=== PATIENT | male | born 1975 | race Caucasian/White ===

== ENCOUNTER 2018-01-16 11:48 | Emergency (ER) | payer SELFPAY ==
[~2018-01-16 11:48] MED LIST: Z.0.NO CURRENT MEDS
[2018-01-16 12:03] VITALS: BP 202/102; PULSE 83; RESP 20; TEMP 98; O2SAT 96
[2018-01-16] MEDS ORDERED: LISI-519 PO (12:10)
--- NOTE | 2018-01-16 12:33 | PD ---
HPI Chief Complaint: Cold / Flu Symptoms Time Seen by Provider: 12:27 Travel History International Travel<30 days: No Contact w/Intl Traveler<30days: No Traveled to known affect area: No History of Present Illness HPI Patient 42-year-old male presents emergency department for evaluation of URI symptoms. Patient states it was not severe but he was late to work today and his boss made him come to the emergency department for return to work note. He states his been sick for the past 2-3 days, he is currently trying to speak with smoking as well. His diagnosed with COPD and they are trying to quit together as they know that there is many adverse health outcomes associated with smoking. Symptoms are mild, not associate with any fever, started 2 days ago, gradually worsening. PFSH Past Medical History Hypertension: Yes Social History Alcohol Use: No Tobacco Use: Yes (ppd) Substance Use: No Allergies-Medications (Allergen,Severity, Reaction): Coded Allergies: No Known Allergies (Verified Adverse Reaction, Unknown, 01/16/18) Reported Meds & Prescriptions Reported Meds & Active Scripts Active Reported Lisinopril Unknown Strength Tab Unknown Dose PO DAILY Review of Systems Except as stated in HPI: all other systems reviewed are Neg Physical Exam Narrative GENERAL: Well-nourished, well-developed patient. SKIN: Focused skin assessment warm/dry. HEAD: Normocephalic. EYES: No scleral icterus. No injection or drainage. ENT: TMs clear bilaterally, oropharynx clear moist. NECK: Supple, trachea midline. No JVD or lymphadenopathy. CARDIOVASCULAR: Regular rate and rhythm without murmurs, gallops, or rubs. RESPIRATORY: Breath sounds equal bilaterally. No accessory muscle use. No wheezes rales or rhonchi. Breath sounds clear GASTROINTESTINAL: Abdomen soft, non-tender, nondistended. MUSCULOSKELETAL: No cyanosis, or edema. BACK: Nontender without obvious deformity. No CVA tenderness. Data Data Last Documented VS Vital Signs Date Time Temp Pulse Resp B/P (MAP) Pulse Ox O2 Delivery O2 Flow Rate FiO2 01/16/18 12:03 98.0 83 20 202/102 (135) 96 Orders Orders Ed Discharge Order (01/16/18 12:39) MDM Medical Decision Making Medical Screen Exam Complete: Yes Emergency Medical Condition: Yes Differential Diagnosis URI, pneumonia unlikely, influenza unlikely. Narrative Course Patient room to the emergency department, appears well in obvious distress, I see no reason why he could not return to work, filled out the work request. Discussed with him briefly his blood pressure. He is stable for discharge There is no indication for emergent lowering of his blood pressure, no indication further workup is not having any symptoms of endorgan failure Diagnosis Primary Impression: URI (upper respiratory infection) Departure Forms: Tests/Procedures, Work Release Enter return to work date: Jan 17, 2018 Additional Instructions: Take your blood pressure meds as prescribed. Follow up with your primary care physician. Disposition: 01 DISCHARGE HOME Condition: Stable Jesús Vargas MD Jan 16, 2018 12:33
== END 2018-01-16 13:20 | disposition home or self-care (01) ==
LOC: NEPD 11:48
DX: J06.9 Acute upper respiratory infection, unspecified (principal); I10 Essential (primary) hypertension; Z72.0 Tobacco use; J44.9 Chronic obstructive pulmonary disease, unspecified
CPT/HCPCS: 99281